=== PATIENT | male | born 1960 | race Two or more races ===

== ENCOUNTER 2017-12-15 17:27 | Inpatient (IN) | payer BC ==
[2017-12-15 19:55] VITALS: BMI 27.3
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
[2017-12-15] MEDS ORDERED: guaiFENesin/D-METHORPHAN HB 10 ML UNIT-DOSE CUPS PO PRN (21:41)
[2017-12-15] MEDS ORDERED: NICOTINE POLACRILEX 2 MG GUM BUC PRN (21:41)
[2017-12-15] MEDS ORDERED: LOPERAMIDE HCL 2 MG CAPSULE PO PRN (21:41)
[2017-12-15] MEDS ORDERED: P-EPHED 60MG/TRIPROLIDI 2.5MG TABLET PO PRN (21:41)
[2017-12-15] MEDS ORDERED: MAGNESIUM CITRATE 300 ML BOTTLE PO PRN (21:41)
[2017-12-15] MEDS ORDERED: chlordiazePOXIDE HCL 25 MG CAPSULE PO PRN (21:41)
[2017-12-15] MEDS ORDERED: MAGNESIUM HYDROX 2400MG/30ML ORAL SUSPENSION 30 ML CUP PO PRN (21:41)
[2017-12-15] MEDS ORDERED: ACETAMINOPHEN 325 MG TABLET (FP) PO PRN (21:41)
[2017-12-15] MEDS ORDERED: MAG HYDROX/AL HYDROX/SIMETH 30 ML UNIT-DOSE CUP PO PRN (21:41)
[2017-12-15] MEDS ORDERED: MENTHOL/PHENOL 1 EACH UD MM PRN (21:41)
[2017-12-15] MEDS ORDERED: IBUPROFEN 400 MG TABLET (FP) PO PRN (21:41)
[2017-12-15] MEDS ORDERED: hydrOXYzine PAMOATE 50 MG CAPSULE (FP) PO PRN (21:41)
[2017-12-15] MEDS ORDERED: MELATONIN 5 MG TABLETS PO PRN (22:00)
[2017-12-15] MEDS ORDERED: chlordiazePOXIDE HCL 25 MG CAPSULE PO SCH (23:00)
[2017-12-15 23:09] LABS: URINE APPEARANCE CLEAR; URINE BILIRUBIN NEGATIVE (<2.0 mg/dL); URINE COLOR AMBER; URINE GLUCOSE (UA) NEGATIVE (NEGATIVE); URINE KETONE TRACE (NEGATIVE); URINE LEUK ESTERASE NEGATIVE (NEGATIVE); URINE NITRITE NEGATIVE (NEGATIVE)
[2017-12-15] MEDS: chlordiazePOXIDE HCL 25 MG CAPSULE PO SCH (23:12)
[2017-12-15] MEDS: THIAMINE HCL 100 MG TABLET (FP) PO SCH (23:13)
[2017-12-15 23:14] LABS: URINE PROTEIN 1+ (NEGATIVE)
[2017-12-15 23:26] LABS: EPI CELLS RARE /HPF (FEW); URINE MUCUS MODERATE
[2017-12-16] MEDS: chlordiazePOXIDE HCL 25 MG CAPSULE PO SCH ×4 (05:57→22:54)
[2017-12-16] MEDS ORDERED: METHADONE HCL 10 MG TABLET PO ONE (09:12)
[2017-12-16] MEDS ORDERED: METHADONE 80 MG, METHADONE 10 MG PO ONE (09:20)
[2017-12-16 10:17] LABS: HEMATOCRIT 39.7 % (35.4-49)
[2017-12-16 10:21] LABS: HEMOGLOBIN 13.2 GM/dL (11.7-16.9); MCH 30.2 pg (25.7-33.7); MCHC 33.1 g/dl (32.0-35.9); MEAN CELL VOLUME 91.2 fl (80-96); MEAN PLT VOLUME 9.2 fl (7.5-11.1); PLATELET COUNT 181 K/MM3 (134-434); RBC 4.35 M/mm3 (4.00-5.60); RDW 14.2 % (11.9-15.9); WHITE BLOOD COUNT 6.5 K/mm3 (4.0-10.0)
[2017-12-16] MEDS ORDERED: METHADONE HCL 40 MG DISPERSABLE TABLET ONE (10:22)
[2017-12-16 10:23] LABS: ALK PHOS 75 U/L (45-117); ANION GAP 9 MMOL/L (8-16); BILIRUBIN,TOTAL 0.4 mg/dL (0.2-1); BLOOD UREA NITROGEN 22 mg/dL (7-18); CALCIUM 8.8 mg/dL (8.5-10.1); CHLORIDE 107 mmol/L (98-107); CO2 28 mmol/L (21-32); CREATININE 0.8 mg/dL (0.55-1.3); GLUCOSE,RANDOM 101 mg/dL (74-106); SGOT/AST 10 U/L (15-37); SGPT/ALT 15 U/L (13-61); SODIUM 143 mmol/L (136-145); TOT PROT 5.9 g/dl (6.4-8.2)
[2017-12-16] MEDS ORDERED: METHADONE HCL 10 MG TABLET ONE (10:23)
[2017-12-16] MEDS: NICOTINE 21 MG/24 HOURS TOPICAL PATCH TD SCH (10:24)
[2017-12-16] MEDS: PRENATAL VITAMINS W/ FOLIC ACID TABLET (FP) PO SCH (10:24)
--- NOTE | 2017-12-16 10:49 | PN ---
S CIWA - CIWA Score Nausea/Vomitin-Mild Nausea/No Vomiting Muscle Tremors: 4-Moderate,w/Arms Extend Anxiety: 3 Agitation: 3 Paroxysmal Sweats: No Perspiration Orientation: 0-Oriented Tacttile Disturbances: 0-None Auditory Disturbances: 0-None Visual Disturbances: 0-None Headache: 1-Very Mild CIWA-Ar Total Score: 12 BHS Progress Note (SOAP) Subjective: tired sweats body aches shakes agitation Objective: 12/16/17 10:45 Vital Signs Temperature 96.6 F L 12/16/17 09:19 Pulse Rate 53 L 12/16/17 09:19 Respiratory Rate 18 12/16/17 09:19 Blood Pressure 136/81 12/16/17 09:19 O2 Sat by Pulse Oximetry (%) Laboratory Tests 12/15/17 12/16/17 12/16/17 22:05 07:00 07:00 WBC 6.5 RBC 4.35 Hgb 13.2 Hct 39.7 MCV 91.2 MCH 30.2 MCHC 33.1 RDW 14.2 Plt Count 181 MPV 9.2 Sodium 143 Potassium 4.0 Chloride 107 Carbon Dioxide 28 Anion Gap 9 BUN 22 H Creatinine 0.8 Creat Clearance w eGFR > 60 Random Glucose 101 Calcium 8.8 Total Bilirubin 0.4 AST 10 L ALT 15 Alkaline Phosphatase 75 Total Protein 5.9 L Albumin 3.0 L Urine Color Wilma Urine Appearance Clear Urine pH 5.0 Ur Specific [place] 1.034 Urine Protein 1+ H Urine Glucose (UA) Negative Urine Ketones Trace H Urine Blood Negative Urine Nitrite Negative Urine Bilirubin Negative Urine Urobilinogen 2.0 Ur Leukocyte Esterase Negative Urine WBC (Auto) <1 Urine RBC (Auto) 9 Ur Epithelial Cells Rare Urine Mucus Moderate aaox3 ambulating no acute distress Assessment: 12/16/17 10:45 withdrawal sx Plan: continue detox increase fluids
--- NOTE | 2017-12-16 11:14 | EKG ---
Test Reason : Blood Pressure : / mmHG Vent. Rate : 058 BPM Atrial Rate : 058 BPM P-R Int : 172 ms QRS Dur : 096 ms QT Int : 436 ms P-R-T Axes : 058 047 037 degrees QTc Int : 428 ms SINUS BRADYCARDIA OTHERWISE NORMAL ECG NO PREVIOUS ECGS AVAILABLE Confirmed by ISH DE LUNA, LYNN ([id number]) on 12/16/2017 11:14:35 AM Referred By: Confirmed By:LYNN DENG MD
[2017-12-16] MEDS: THIAMINE HCL 100 MG TABLET (FP) PO SCH (22:54)
[2017-12-17] MEDS ORDERED: METHADONE HCL 10 MG TABLET ONE (04:24)
[2017-12-17] MEDS ORDERED: METHADONE HCL 40 MG DISPERSABLE TABLET ONE (04:24)
[2017-12-17] MEDS: chlordiazePOXIDE HCL 25 MG CAPSULE PO SCH ×3 (05:26→17:38)
[2017-12-17] MEDS: METHADONE 80 MG, METHADONE 10 MG PO SCH (05:27)
[2017-12-17] MEDS ORDERED: METHADONE HCL 40 MG DISPERSABLE TABLET PO SCH (06:00)
[2017-12-17] MEDS: PRENATAL VITAMINS W/ FOLIC ACID TABLET (FP) PO SCH (10:48)
[2017-12-17] MEDS: NICOTINE 21 MG/24 HOURS TOPICAL PATCH TD SCH (10:48)
--- NOTE | 2017-12-17 12:42 | PN ---
[facility] CIWA - CIWA Score Nausea/Vomitin-Mild Nausea/No Vomiting Muscle Tremors: 2 Anxiety: 3 Agitation: 3 Paroxysmal Sweats: 2 Orientation: 0-Oriented Tacttile Disturbances: 0-None Auditory Disturbances: 0-None Visual Disturbances: 0-None Headache: 0-None Present CIWA-Ar Total Score: 11 S Progress Note (SOAP) Subjective: anxious, constipation ( last BM two days ago), decrease fluid intake , sweats Objective: 12/17/17 12:40 Vital Signs Temperature 98.1 F 12/17/17 08:59 Pulse Rate 56 L 12/17/17 08:59 Respiratory Rate 16 12/17/17 08:59 Blood Pressure 123/83 12/17/17 08:59 O2 Sat by Pulse Oximetry (%) Laboratory Last Values WBC 6.5 K/mm3 (4.0-10.0) 12/16/17 07:00 RBC 4.35 M/mm3 (4.00-5.60) 12/16/17 07:00 Hgb 13.2 GM/dL (11.7-16.9) 12/16/17 07:00 Hct 39.7 % (35.4-49) 12/16/17 07:00 MCV 91.2 fl (80-96) 12/16/17 07:00 MCH 30.2 pg (25.7-33.7) 12/16/17 07:00 MCHC 33.1 g/dl (32.0-35.9) 12/16/17 07:00 RDW 14.2 % (11.9-15.9) 12/16/17 07:00 Plt Count 181 K/MM3 (134-434) 12/16/17 07:00 MPV 9.2 fl (7.5-11.1) 12/16/17 07:00 Sodium 143 mmol/L (136-145) 12/16/17 07:00 Potassium 4.0 mmol/L (3.5-5.1) 12/16/17 07:00 Chloride 107 mmol/L (98-107) 12/16/17 07:00 Carbon Dioxide 28 mmol/L (21-32) 12/16/17 07:00 Anion Gap 9 MMOL/L (8-16) 12/16/17 07:00 BUN 22 mg/dL (7-18) H 12/16/17 07:00 Creatinine 0.8 mg/dL (0.55-1.3) 12/16/17 07:00 Creat Clearance w eGFR > 60 (>60) 12/16/17 07:00 Random Glucose 101 mg/dL (74-106) 12/16/17 07:00 Calcium 8.8 mg/dL (8.5-10.1) 12/16/17 07:00 Total Bilirubin 0.4 mg/dL (0.2-1) 12/16/17 07:00 AST 10 U/L (15-37) L 12/16/17 07:00 ALT 15 U/L (13-61) 12/16/17 07:00 Alkaline Phosphatase 75 U/L (45-117) 12/16/17 07:00 Total Protein 5.9 g/dl (6.4-8.2) L 12/16/17 07:00 Albumin 3.0 g/dl (3.4-5.0) L 12/16/17 07:00 Urine Color Wilma 12/15/17 22:05 Urine Appearance Clear 12/15/17 22:05 Urine pH 5.0 (5.0-8.0) 12/15/17 22:05 Ur Specific [place] 1.034 (1.001-1.035) 12/15/17 22:05 Urine Protein 1+ (NEGATIVE) H 12/15/17 22:05 Urine Glucose (UA) Negative (NEGATIVE) 12/15/17 22:05 Urine Ketones Trace (NEGATIVE) H 12/15/17 22:05 Urine Blood Negative (NEGATIVE) 12/15/17 22:05 Urine Nitrite Negative (NEGATIVE) 12/15/17 22:05 Urine Bilirubin Negative (<2.0 mg/dL) 12/15/17 22:05 Urine Urobilinogen 2.0 mg/dL (0.2-1.0) 12/15/17 22:05 Ur Leukocyte Esterase Negative (NEGATIVE) 12/15/17 22:05 Urine WBC (Auto) <1 /hpf (3-5) 12/15/17 22:05 Urine RBC (Auto) 9 /hpf (0-3) 12/15/17 22:05 Ur Epithelial Cells Rare /HPF (FEW) 12/15/17 22:05 Urine Mucus Moderate 12/15/17 22:05 RPR Titer Nonreactive (NONREACTIVE) 12/16/17 07:00 HIV 1&2 Antibody Screen Negative 12/16/17 07:00 HIV P24 Antigen Negative 12/16/17 07:00 labs noted Aox3, no distress, anxious no adventitious breath sounds ABD non-tender , non-distended full ROM ambulating in the unit independently Assessment: 12/17/17 12:41 withdrawal sx constipation Plan: increase po fluids MOM ambulate continue detox continue to monitor
[2017-12-17] MEDS: chlordiazePOXIDE 5 MG CAPSULE PO SCH (22:41)
[2017-12-17] MEDS: THIAMINE HCL 100 MG TABLET (FP) PO SCH (22:41)
[2017-12-18] MEDS ORDERED: METHADONE HCL 40 MG DISPERSABLE TABLET ONE (04:45)
[2017-12-18] MEDS ORDERED: METHADONE HCL 10 MG TABLET ONE (04:46)
[2017-12-18] MEDS: chlordiazePOXIDE 5 MG CAPSULE PO SCH ×3 (05:23→17:55)
[2017-12-18] MEDS: METHADONE 80 MG, METHADONE 10 MG PO SCH (05:23)
[2017-12-18] MEDS: NICOTINE 21 MG/24 HOURS TOPICAL PATCH TD SCH (10:23)
[2017-12-18] MEDS: PRENATAL VITAMINS W/ FOLIC ACID TABLET (FP) PO SCH (10:23)
--- NOTE | 2017-12-18 15:00 | PN ---
S Progress Note (SOAP) Subjective: feeling better no tremor less sweat no gi distress Objective: 12/18/17 14:59 Vital Signs Temperature 98.4 F 12/18/17 13:59 Pulse Rate 60 12/18/17 13:59 Respiratory Rate 16 12/18/17 13:59 Blood Pressure 116/69 12/18/17 13:59 O2 Sat by Pulse Oximetry (%) Laboratory Last Values WBC 6.5 K/mm3 (4.0-10.0) 12/16/17 07:00 RBC 4.35 M/mm3 (4.00-5.60) 12/16/17 07:00 Hgb 13.2 GM/dL (11.7-16.9) 12/16/17 07:00 Hct 39.7 % (35.4-49) 12/16/17 07:00 MCV 91.2 fl (80-96) 12/16/17 07:00 MCH 30.2 pg (25.7-33.7) 12/16/17 07:00 MCHC 33.1 g/dl (32.0-35.9) 12/16/17 07:00 RDW 14.2 % (11.9-15.9) 12/16/17 07:00 Plt Count 181 K/MM3 (134-434) 12/16/17 07:00 MPV 9.2 fl (7.5-11.1) 12/16/17 07:00 Sodium 143 mmol/L (136-145) 12/16/17 07:00 Potassium 4.0 mmol/L (3.5-5.1) 12/16/17 07:00 Chloride 107 mmol/L (98-107) 12/16/17 07:00 Carbon Dioxide 28 mmol/L (21-32) 12/16/17 07:00 Anion Gap 9 MMOL/L (8-16) 12/16/17 07:00 BUN 22 mg/dL (7-18) H 12/16/17 07:00 Creatinine 0.8 mg/dL (0.55-1.3) 12/16/17 07:00 Creat Clearance w eGFR > 60 (>60) 12/16/17 07:00 Random Glucose 101 mg/dL (74-106) 12/16/17 07:00 Calcium 8.8 mg/dL (8.5-10.1) 12/16/17 07:00 Total Bilirubin 0.4 mg/dL (0.2-1) 12/16/17 07:00 AST 10 U/L (15-37) L 12/16/17 07:00 ALT 15 U/L (13-61) 12/16/17 07:00 Alkaline Phosphatase 75 U/L (45-117) 12/16/17 07:00 Total Protein 5.9 g/dl (6.4-8.2) L 12/16/17 07:00 Albumin 3.0 g/dl (3.4-5.0) L 12/16/17 07:00 Urine Color Wilma 12/15/17 22:05 Urine Appearance Clear 12/15/17 22:05 Urine pH 5.0 (5.0-8.0) 12/15/17 22:05 Ur Specific [place] 1.034 (1.001-1.035) 12/15/17 22:05 Urine Protein 1+ (NEGATIVE) H 12/15/17 22:05 Urine Glucose (UA) Negative (NEGATIVE) 12/15/17 22:05 Urine Ketones Trace (NEGATIVE) H 12/15/17 22:05 Urine Blood Negative (NEGATIVE) 12/15/17 22:05 Urine Nitrite Negative (NEGATIVE) 12/15/17 22:05 Urine Bilirubin Negative (<2.0 mg/dL) 12/15/17 22:05 Urine Urobilinogen 2.0 mg/dL (0.2-1.0) 12/15/17 22:05 Ur Leukocyte Esterase Negative (NEGATIVE) 12/15/17 22:05 Urine WBC (Auto) <1 /hpf (3-5) 12/15/17 22:05 Urine RBC (Auto) 9 /hpf (0-3) 12/15/17 22:05 Ur Epithelial Cells Rare /HPF (FEW) 12/15/17 22:05 Urine Mucus Moderate 12/15/17 22:05 RPR Titer Nonreactive (NONREACTIVE) 12/16/17 07:00 HIV 1&2 Antibody Screen Negative 12/16/17 07:00 HIV P24 Antigen Negative 12/16/17 07:00 lab noted Assessment: 12/18/17 14:59 mild withdrawal sx Plan: medically supervised detox
[2017-12-18] MEDS: THIAMINE HCL 100 MG TABLET (FP) PO SCH (22:41)
[2017-12-18] MEDS: chlordiazePOXIDE HCL 10 MG CAPSULE PO SCH (22:41)
[2017-12-19] MEDS ORDERED: METHADONE HCL 40 MG DISPERSABLE TABLET ONE (04:43)
[2017-12-19] MEDS ORDERED: METHADONE HCL 10 MG TABLET ONE (04:43)
[2017-12-19] MEDS: METHADONE 80 MG, METHADONE 10 MG PO SCH (06:09)
[2017-12-19] MEDS: chlordiazePOXIDE HCL 10 MG CAPSULE PO SCH (06:09)
--- NOTE | 2017-12-19 08:43 | DS ---
[facility] Detox Discharge Summary Admission Date: 12/15/17 Discharge Date: 12/19/17 - History Present History: Alcohol Dependence, Sedative Dependence Additional Comments: 57 years old male admitted on 12/15/17 for alcohol and benzo withdrawal sx completed detox regimen tolerated well denies alcohol and benzo withdrawal sx alert oriented x 3 no acute distress aftercare marleni brie shaffer - Physical Exam Results Vital Signs: Vital Signs Temperature 97.7 F 12/19/17 06:00 Pulse Rate 52 L 12/19/17 06:00 Respiratory Rate 18 12/19/17 06:00 Blood Pressure 120/65 12/19/17 06:00 O2 Sat by Pulse Oximetry (%) Pertinent Admission Physical Exam Findings: alcohol and benzo withdrawal sx Vital Signs Temperature 98.1 F 12/19/17 09:16 Pulse Rate 65 12/19/17 09:16 Respiratory Rate 18 12/19/17 09:16 Blood Pressure 134/70 12/19/17 09:16 O2 Sat by Pulse Oximetry (%) Laboratory Last Values WBC 6.5 K/mm3 (4.0-10.0) 12/16/17 07:00 RBC 4.35 M/mm3 (4.00-5.60) 12/16/17 07:00 Hgb 13.2 GM/dL (11.7-16.9) 12/16/17 07:00 Hct 39.7 % (35.4-49) 12/16/17 07:00 MCV 91.2 fl (80-96) 12/16/17 07:00 MCH 30.2 pg (25.7-33.7) 12/16/17 07:00 MCHC 33.1 g/dl (32.0-35.9) 12/16/17 07:00 RDW 14.2 % (11.9-15.9) 12/16/17 07:00 Plt Count 181 K/MM3 (134-434) 12/16/17 07:00 MPV 9.2 fl (7.5-11.1) 12/16/17 07:00 Sodium 143 mmol/L (136-145) 12/16/17 07:00 Potassium 4.0 mmol/L (3.5-5.1) 12/16/17 07:00 Chloride 107 mmol/L (98-107) 12/16/17 07:00 Carbon Dioxide 28 mmol/L (21-32) 12/16/17 07:00 Anion Gap 9 MMOL/L (8-16) 12/16/17 07:00 BUN 22 mg/dL (7-18) H 12/16/17 07:00 Creatinine 0.8 mg/dL (0.55-1.3) 12/16/17 07:00 Creat Clearance w eGFR > 60 (>60) 12/16/17 07:00 Random Glucose 101 mg/dL (74-106) 12/16/17 07:00 Calcium 8.8 mg/dL (8.5-10.1) 12/16/17 07:00 Total Bilirubin 0.4 mg/dL (0.2-1) 12/16/17 07:00 AST 10 U/L (15-37) L 12/16/17 07:00 ALT 15 U/L (13-61) 12/16/17 07:00 Alkaline Phosphatase 75 U/L (45-117) 12/16/17 07:00 Total Protein 5.9 g/dl (6.4-8.2) L 12/16/17 07:00 Albumin 3.0 g/dl (3.4-5.0) L 12/16/17 07:00 Urine Color Wilma 12/15/17 22:05 Urine Appearance Clear 12/15/17 22:05 Urine pH 5.0 (5.0-8.0) 12/15/17 22:05 Ur Specific [place] 1.034 (1.001-1.035) 12/15/17 22:05 Urine Protein 1+ (NEGATIVE) H 12/15/17 22:05 Urine Glucose (UA) Negative (NEGATIVE) 12/15/17 22:05 Urine Ketones Trace (NEGATIVE) H 12/15/17 22:05 Urine Blood Negative (NEGATIVE) 12/15/17 22:05 Urine Nitrite Negative (NEGATIVE) 12/15/17 22:05 Urine Bilirubin Negative (<2.0 mg/dL) 12/15/17 22:05 Urine Urobilinogen 2.0 mg/dL (0.2-1.0) 12/15/17 22:05 Ur Leukocyte Esterase Negative (NEGATIVE) 12/15/17 22:05 Urine WBC (Auto) <1 /hpf (3-5) 12/15/17 22:05 Urine RBC (Auto) 9 /hpf (0-3) 12/15/17 22:05 Ur Epithelial Cells Rare /HPF (FEW) 12/15/17 22:05 Urine Mucus Moderate 12/15/17 22:05 RPR Titer Nonreactive (NONREACTIVE) 12/16/17 07:00 HIV 1&2 Antibody Screen Negative 12/16/17 07:00 HIV P24 Antigen Negative 12/16/17 07:00 lab oted - Treatment Hospital Course: Detox Protocol Followed, Detoxed Safely, Responded well, Discharged Condition Good, Rehab Referral Accepted Patient has Accepted a Rehab Referral to: [facility] - Medication Discharge Medications: Ambulatory Orders Methadone [Dolophine -] 90 mg PO DAILY 12/15/17 - Diagnosis (1) Constipation Status: Chronic Qualifiers: Constipation type: slow transit constipation Qualified Code(s): K59.01 - Slow transit constipation (2) Alcohol dependence with uncomplicated withdrawal Status: Acute (3) Methadone maintenance therapy patient Status: Chronic (4) Nicotine dependence Status: Acute Qualifiers: Nicotine product type: cigarettes Substance use status: in withdrawal Qualified Code(s): F17.213 - Nicotine dependence, cigarettes, with withdrawal (5) Sedative, hypnotic or anxiolytic dependence with withdrawal, uncomplicated Status: Acute - AMA Did Patient Leave Against Medical Advice: No
[2017-12-19 09:16] VITALS: BP 134/70; PULSE 65; TEMP 98.1
== END 2017-12-19 10:55 | disposition home or self-care (01) | DRG 773 ==
LOC: YASAS 17:27 → Y6N 22:10
PROC: HZ2ZZZZ Detoxification Services for Substance Abuse Treatment (ICD-10-PCS; principal; 2017-12-15)
DX: F10.230 Alcohol dependence with withdrawal, uncomplicated (principal); F11.20 Opioid dependence, uncomplicated; F13.230 Sedative, hypnotic or anxiolytic dependence with withdrawal, uncomplicated; F17.213 Nicotine dependence, cigarettes, with withdrawal; F32.9 Major depressive disorder, single episode, unspecified; F19.282 Other psychoactive substance dependence with psychoactive substance-induced sleep disorder; F43.10 Post-traumatic stress disorder, unspecified; K59.01 Slow transit constipation; R63.8 Other symptoms and signs concerning food and fluid intake; B18.2 Chronic viral hepatitis C
CPT/HCPCS: 36415; 80053; 81003; 81015; 85027; 86593; 87389; 93005; 93010